=== PATIENT | female | born 1980 | race Asian ===

== ENCOUNTER 2018-06-11 01:44 | Emergency (ER) | payer BC, OTHER ==
[~2018-06-11] VITALS: Ht 152.4 cm; Wt 77.1 kg
[2018-06-11 01:49] VITALS: BP_SYST 145
[2018-06-11] MEDS ORDERED: IPRATROPIUM/ALBUTEROL SULFATE 3 ML AMPUL.NEB (DUONEB) INH ONE (02:00)
[2018-06-11] MEDS ORDERED: methylPREDNISolone SOD SUCC/PF 62.5 MG/ML VIAL IVP ONE (02:00)
[2018-06-11] MEDS ORDERED: methylPREDNISolone SOD SUCC/PF 62.5 MG/ML VIAL IM ONE (03:00)
[2018-06-11 03:42] VITALS: BP_SYST 133
== END 2018-06-11 03:42 | disposition home or self-care (01) ==
LOC: SED 01:44
DX: J45.909 Unspecified asthma, uncomplicated (principal)
CPT/HCPCS: 71045; 94640; 96372; 99283; J2930; J7620